=== PATIENT | male | born 1950 | race Caucasian/White ===

== ENCOUNTER 2017-06-19 14:01 | Emergency (ER) | payer OTHER ==
[~2017-06-19] VITALS: Ht 167.6 cm; Wt 63.5 kg
--- NOTE | ~2017-06-19 | EKG ---
[place] [id number] [place] [address] ELECTROCARDIOGRAM REPORT Name: MYNOR FORDE Room #: [facility]ENTERJanene#: [id number] Admission: 06/19/17 Attend Phys: Discharge: 06/19/17 Date of : 48 Report #: [id number] THIS REPORT FOR: //name// [facility] ED Test Date: 2017-06-19 Test Time: 14:23:06 Pat Name: MYNOR FORDE Department: Room: Gender: M Architectural Manager: MARIBELLNATASHA : 1950 Requested By: Yina Mejía Order Number: [id number] MD: Kumar Cohen Measurements Intervals [place] Rate: 67 P: 33 DE: 172 QRS: -18 QRSD: 93 T: 2 QT: 398 QTc: 420 Interpretive Statements Sinus rhythm Cannot rule out septal infarct, old No previous ECG available for comparison Electronically Signed On 06-21-2017 16:29:28 CDT by Kumar Choen [email or web address] <ELECTRONICALLY SIGNED> By: Kumar Cohen MD, [facility] 06/21/17 1629 1423 1423 Kumar Cohen MD, FACC /EPI
[2017-06-19 14:14] VITALS: BP 158/84
[2017-06-19 15:06] LABS: BASOPHILS 0.7 % (0.0-2.0); EOSINOPHILS 4.5 % (0.0-3.0); HEMATOCRIT 36.8 % (42.0-52.0); HEMOGLOBIN 12.8 gm/dL (14.0-18.0); LYMPHOCYTES 21.7 % (24.0-44.0); MCH 33.6 pg (26.0-34.0); MCHC 34.8 g/dL (28.0-37.0); MCV 96.5 fL (80.0-100.0); MONOCYTES 5.8 % (1.0-8.0); PLATELET COUNT 274 thou/uL (150-400); POLYS 67.3 % (36.0-66.0); RBC 3.81 mil/uL (4.50-6.00); RDW 13.6 % (10.5-14.5); WBC 5.9 thou/uL (4.0-11.0)
[2017-06-19 15:22] LABS: CALCIUM 8.9 mg/dL (8.5-10.1); CREATININE 1.1 mg/dL (0.7-1.3)
[2017-06-19 15:27] LABS: URINE BILIRUBIN NEGATIVE (Negative); URINE BLOOD NEGATIVE (Negative); URINE CLARITY CLEAR; URINE COLOR YELLOW; URINE GLUCOSE-RANDOM* NEGATIVE (Negative); URINE KETONES NEGATIVE (Negative); URINE LEUKOCYTES NEGATIVE (Negative); URINE NITRITE NEGATIVE (Negative); URINE PROTEIN (DIPSTICK) NEGATIVE (Negative); URINE UROBILINOGEN 0.2 E.U./dl (0.2-1.0)
== END 2017-06-19 16:35 | disposition home or self-care (01) ==
LOC: ER 14:01
PROVIDERS: Emergency Medicine
DX: F91.9 Conduct disorder, unspecified (principal)